=== PATIENT | male | born 1975 | race Two or more races ===

== ENCOUNTER 2017-08-26 10:13 | Emergency (ER) | payer OTHER ==
[2017-08-26] MEDS: MORPHINE SULFATE 10 MG/ML VIAL. IV (10:45)
[2017-08-26] MEDS: ONDANSETRON PF 4 MG/2 ML VIAL. IV (10:45)
[2017-08-26 11:02] LABS: ADD MAN DIFF? NO
[2017-08-26 11:04] LABS: BILIRUBIN,URINE NEGATIVE (NEG); GLUCOSE,URINE NEGATIVE (NEG); NITRITE,URINE NEGATIVE (NEG); PH,URINE 5.5; PROTEIN,URINE NEGATIVE (NEG-TRACE); UROBILINOGEN,URINE 0.2 mg/dL (0.2 mg/dL)
[2017-08-26 11:07] LABS: BASO % 0 % (0-3); EOS % 2 % (0-3); HEMATOCRIT 45.6 % (39.0-53.0); HEMOGLOBIN 15.5 g/dL (13.0-17.5); LYMPH # 1.2 x10^3/uL (1.0-4.8); LYMPH % 15 % (24-48); MEAN CORPUSCULAR HEMOGLOBIN 29 pg (25-35); MEAN CORPUSCULAR HGB CONC 34 g/dL (31-37); MEAN CORPUSCULAR VOLUME 86 fL (79-100); MONO % 7 % (0-9); NEUT % 76 % (31-73); PLATELET COUNT 268 x10^3/uL (140-400); RED BLOOD COUNT 5.33 x10^6/uL (4.30-5.70); RED CELL DISTRIBUTION WIDTH 13.5 % (11.5-14.5); WHITE BLOOD COUNT 8.3 x10^3/uL (4.0-11.0)
[2017-08-26 11:10] LABS: BARBITURATES NEG (NEG); BENZODIAZEPINES NEG (NEG); CANNABINOIDS NEG (NEG); COCAINE POS (NEG); ETHANOL, URINE NEG (NEG); METHADONE NEG (NEG); OPIATES NEG (NEG); PHENCYCLIDINE NEG (NEG)
[2017-08-26 11:15] LABS: ANION GAP 10 (6-14); BLOOD UREA NITROGEN 10 mg/dL (8-26); CARBON DIOXIDE 26 mmol/L (21-32); CHLORIDE 103 mmol/L (98-107); CREATININE 0.8 mg/dL (0.7-1.3); GFR 107.1; GLUCOSE 103 mg/dL (70-99); SODIUM 139 mmol/L (136-145)
[2017-08-26] MEDS: ACETAMINOPHEN 500 MG TABLET PO (11:16)
[2017-08-26 11:17] LABS: ETHANOL < 10 mg/dL (0-10)
[2017-08-26 11:19] LABS: BACTERIA,URINE 0 /HPF (0-FEW); RBC,URINE 0 /HPF (0-2); WBC,URINE OCC /HPF (0-4)
[2017-08-26 11:20] LABS: SQUAMOUS EPITHELIAL CELL,UR OCC /LPF
[2017-08-26] MEDS ORDERED: CONTRAST GIVEN MC (12:15)
[2017-08-26] MEDS: IOHEXOL 300 MG/ML 100ML VIAL. IV (12:29)
== END 2017-08-26 13:34 | disposition home or self-care (01) ==
LOC: ER 10:13
DX: S22.32XA Fracture of one rib, left side, initial encounter for closed fracture (principal); S32.039A Unspecified fracture of third lumbar vertebra, initial encounter for closed fracture; V43.52XA Car driver injured in collision with other type car in traffic accident, initial encounter; Y93.I9 Activity, other involving external motion; Y92.410 Unspecified street and highway as the place of occurrence of the external cause; Y99.8 Other external cause status
CPT/HCPCS: 36415; 71101; 71260; 74177; 80048; 80307; 81001; 85025; 99284-25; 99285-25; G0480; Q9967